=== PATIENT | female | born 1995 | race Caucasian/White ===

== ENCOUNTER → 2019-10-21 02:13 | Observation (INO) ==
[2019-10-21 00:39] LABS: Amorphous Crystals,Urine Moderate /HPF (Few); Apearance,Urine CLOUDY (Clear); Bilirubin,Urine Negative (Negative); Blood, Urine Large mg/dL (Negative); Glucose,Urine (UA) Negative (Negative); Ketones,Urine Negative (Negative); Mucus,Urine Occasional /LPF (Occasional); Nitrite,Urine Negative (Negative); Protein,Urine Negative; Squamous Epithelial Cell,Urine Occasional /HPF (0-10); Urine Color Yellow (Yellow); Urine Specific Gravity 1.023 (1.001-1.035); WBC,Urine 3 /HPF (0-6)
[~2019-10-21 02:13] MED LIST: RHO(D) IMMUNE GLOBULIN 300 MCG SYRINGE IM ONE
== END | disposition home or self-care (01) ==
LOC: N.LD
PROVIDERS: ADMIT Specialist; ATTEND Specialist